=== PATIENT | female | born 1940 | race Caucasian/White ===

== ENCOUNTER 2021-04-26 11:45 | Outpatient (CLI) | payer MEDICARE, BC | END 2021-04-26 11:46 | disposition home or self-care (01) | LOC: CSHCT 11:45 | PROVIDERS: ATTEND Family Medicine | DX: H53.2 Diplopia (principal); R47.1 Dysarthria and anarthria; R29.898 Other symptoms and signs involving the musculoskeletal system; I67.82 Cerebral ischemia | CPT/HCPCS: 70450 ==

== ENCOUNTER 2021-06-14 09:35 | Outpatient (CLI) | payer MEDICARE, BC | END 2021-06-14 09:36 | disposition home or self-care (01) | LOC: CSHMRI 09:35 | PROVIDERS: ATTEND Family Medicine | DX: D32.9 Benign neoplasm of meninges, unspecified (principal); R90.89 Other abnormal findings on diagnostic imaging of central nervous system; H53.2 Diplopia; R47.1 Dysarthria and anarthria; R29.898 Other symptoms and signs involving the musculoskeletal system; I67.89 Other cerebrovascular disease | CPT/HCPCS: 70553 ==

== ENCOUNTER 2022-04-16 20:11 | Emergency (ER) | payer MEDICARE, BC ==
[2022-04-16] MEDS ORDERED: Meclizine HCl 25 MG TAB ONE (21:46)
[2022-04-16 22:08] LABS: #Basophils 0.1 10x3/uL (0.0-0.2); #Monocytes 0.4 10x3/uL (0.0-1.1); #Neutrophils 9.1 10x3/uL (1.5-8.4); %Basophils 0.5 % (0.0-2.0); %Eosinophils 0.4 % (0.0-6.0); %Lymphocytes 9.3 % (18.0-47.0); %Monocytes 3.4 % (0.0-10.0); %Neutrophils 86.2 % (40.0-75.0); Hemoglobin 14.6 g/dL (12.0-15.5); Mean Corpuscular Hemoglobin 30.5 pg (27.0-33.0); RBC Distribution Width 12.7 % (11.5-14.5); Red Blood Cell (RBC) Count 4.78 10x6/uL (3.90-5.03); White Blood Cell (WBC) Count 10.6 10x3/uL (3.5-10.5)
[2022-04-16 22:16] LABS: ALT (SGPT) 15 U/L (8-55); AST (SGOT) 22 U/L (5-34); Albumin 4.1 g/dL (3.4-4.8); Alkaline Phosphatase 111 U/L (40-110); Anion Gap 15 mmol/L (10-20); BUN (Urea Nitrogen) 21 mg/dL (9.8-20.1); Bilirubin, Total 0.6 mg/dL (0.2-1.2); Calc. Creatinine Clearance 0 mL/min (70-130); Calcium 10.4 mg/dL (7.8-10.44); Carbon Dioxide 25 mmol/L (23-31); Chloride 100 mmol/L (98-107); Estimated GFR 52; Globulin 2.9 g/dL (2.4-3.5); Glucose 179 mg/dL (83-110); Potassium 4.1 mmol/L (3.5-5.1); Sodium 136 mmol/L (136-145)
[2022-04-16 22:37] LABS: Bilirubin Neg (Negative); Blood, Urine Negative (Negative); Clarity Clear (Clear); Glucose, Urine (Dipstick) Normal (Negative); Ketone, Urine 5 mg/dL (Negative); Leukocyte 25 (Negative); Nitrite Negative (Negative); Protein, Urine (Dipstick) Negative (Neg-Trace); Urobilinogen Normal mg/dL (Less than 2)
[2022-04-16 22:53] LABS: RBC/HPF None Seen HPF (0-3)
[2022-04-16 22:54] LABS: Bacteria/HPF 1+ HPF (None Seen); Squamous Epithelial 0-3 HPF (0-3)
[2022-04-16 23:35] LABS: Platelet Morphology Comment Appears Decreased
[2022-04-16 23:36] LABS: RBC Morphology Normal
== END 2022-04-16 23:16 | disposition home or self-care (01) ==
LOC: CSHERS 20:11
DX: R42 Dizziness and giddiness (principal); N39.0 Urinary tract infection, site not specified; R11.2 Nausea with vomiting, unspecified; I10 Essential (primary) hypertension
CPT/HCPCS: 36415; 70450; 72070; 80053; 81003; 81015; 84484; 85025; 93005

== ENCOUNTER 2025-03-10 10:55 | Outpatient (CLI) | payer MEDICARE | END 2025-03-10 10:56 | disposition home or self-care (01) | LOC: CSHRAD 10:55 | PROVIDERS: ATTEND Student in an Organized Health Care Education/Training Program | DX: M25.532 Pain in left wrist (principal) ==